=== PATIENT | male | born 1965 | race Caucasian/White ===

== ENCOUNTER 2017-10-15 21:54 | Emergency (ER) | payer OTHER ==
[~2017-10-15] VITALS: Ht 175.3 cm; Wt 87.8 kg
[2017-10-15 21:59] VITALS: BP 149/90
[2017-10-16] MEDS ORDERED: NAPROSYN500 MG PO (00:40)
[2017-10-16] MEDS ORDERED: FLEXERIL10 MG PO (00:40)
== END 2017-10-16 00:48 | disposition home or self-care (01) ==
LOC: EME 21:54
DX: S16.1XXA Strain of muscle, fascia and tendon at neck level, initial encounter (principal); R51 Headache; V49.40XA Driver injured in collision with unspecified motor vehicles in traffic accident, initial encounter; E78.5 Hyperlipidemia, unspecified
CPT/HCPCS: 70450; 72125; 99281; 99284